=== PATIENT | female | born 1995 | race Caucasian/White ===

== ENCOUNTER 2024-08-21 15:06 | Emergency (ER) | payer OTHER, SELFPAY ==
[2024-08-21 15:14] VITALS: BP 124/69; PULSE 73; RESP 18; TEMP 36.9; O2SAT 100; BMI 21.6
--- NOTE | 2024-08-21 15:24 | DI.US.S_ITS ---
PROCEDURE: US OB LIMITED INDICATIONS: SPOTTING 1 OCCURRENCE TODAY. BILATERAL ADNEXA PAIN. OUTSIDE/PRIOR DATING DATA: Last menstrual period (LMP): 05/04/2024. LMP-based estimated date of delivery (BRODY): 02/08/2025. First dating scan (date and location): Not applicable. TECHNIQUE: Real-time scanning was performed of the fetus, with image documentation. COMPARISON: None. FINDINGS: A single live intrauterine gestation is present. Presentation: Vertex. Placenta: Placental position is anterior, without previa. Amniotic fluid index: 16.3 cm, normal range is 5-24 cm. Single deepest vertical pocket is 7.3 cm. heart rate: 157 beats per minute. Maternal cervical canal: Closed, 4 cm long. Normal lower limit is 2.5 cm. Clinically estimated gestational age: 15 weeks 4 days No subchorionic hemorrhage is seen. The right ovary is within normal limits. The left ovary is not well seen. IMPRESSION: A single live intrauterine is seen. A cause vaginal spotting is not seen. Dictated by: Raymundo Medina M.D. on 08/21/2024 at 16:31 Approved by: Raymundo Medina M.D. on 08/21/2024 at 16:32
[2024-08-21 15:27] VITALS: BP 126/70; PULSE 65; O2SAT 100
[2024-08-21 15:30] VITALS: PULSE 68; O2SAT 100
--- NOTE | 2024-08-21 15:40 | ED.PREGNANCY ---
HPI - General Chief complaint: Vaginal Bleeding Stated complaint: 15wk Preg, Bleeding, Pelvic Px Time Seen by Provider: 08/21/24 15:40 Source: patient Mode of arrival: Ambulatory Limitations: no limitations History of Present Illness HPI Narrative: Patient is a 29-year-old female no significant past medical history presents to the ED for evaluation of pelvic cramping and vaginal bleeding, is approximately 15 weeks , states that she does have a nuclear equipment research engineer who she called prior to this and was started come into the ED. Patient states that she has had 1 other vaginal delivery full term. States that she did notice 1 episode of bright red blood spotting earlier today after she finished yoga. States that it was accompanied with some mild pelvic cramping but is currently not having any symptoms at this time. States that the bleeding has since resolved. Not having any urinary symptoms vaginal discharge or any other symptoms at this time. Related Data Allergies Allergy/AdvReac Type Severity Reaction Status Date / Time No Known Drug Allergies Allergy Verified 08/21/24 15:14 Review of Systems Review of Systems Narrative: General: Denies fever, chills, weight loss HEENT: Denies headache, eye drainage, eye irritation, head trauma, sore throat, voice change Cardiovascular: Denies any chest pain, palpitations, shortness of breath, tachycardia Respiratory: Denies any shortness of breath, cough, wheeze, stridor GI/: Denies any abdominal pain, nausea, vomiting, diarrhea, bright red blood per rectum, melanotic stools, urinary frequency, urinary retention, dysuria, hematuria, positive vaginal bleeding, pelvic cramping MSK: Denies any joint pain, muscle pains, swelling Skin: Denies any rashes, lesions, discoloration Neuro: Denies any headache, lightheadedness, dizziness, fainting, weakness Psych: Denies SI/HI Exam Narrative Exam Narrative: General: Cooperative, comfortable, well-developed, not in acute distress HEENT: Normocephalic, atraumatic, PERRLA, normal sclera, eyelids normal, Neck: Active full range of motion, atraumatic Chest: Normal to inspection, negative crepitus, no overlying erythema ecchymosis Respiratory: Normal respiratory effort, not in acute respiratory distress, clear to auscultation bilaterally negative cough, wheeze, tachypnea, rhonchi, rales Cardiology: Regular rate rhythm negative gallop, murmur, rubs GI/: Normal to inspection, soft, nonrigid, no tenderness to palpation, exam deferred MSK: Full range of active range of motion of all 4 extremities, atraumatic Skin: No rashes lesions noted Neuro: Alert awake oriented x3, moves all 4 extremities spontaneously, cranial nerves intact, able to answer all questions appropriately follows commands appropriately Psych: Cooperative, negative suicidal or homicidal ideations Initial Vital Signs Initial Vital Signs: Vital Signs Temperature 98.5 F 08/21/24 15:14 Pulse Rate 73 08/21/24 15:14 Respiratory Rate 18 08/21/24 15:14 Blood Pressure 124/69 08/21/24 15:14 Pulse Oximetry 100 08/21/24 15:14 Oxygen Delivery Method Room Air 08/21/24 15:14 Course Orders Ordered: ED Orders 08/21/24 15:24 OB >= 14 weeks Fetus Stat Complete Blood Count AUTO DIFF Stat Comprehensive Metabolic Panel Stat HCG Quantitative /Beta subunit Stat Type and Screen Stat Vital Signs Vital signs: Vital Signs - 8 hr 08/21/24 15:14 Temperature 98.5 F Pulse Rate 73 Respiratory Rate 18 Blood Pressure 124/69 Pulse Oximetry 100 Oxygen Delivery Method Room Air MDM - OB/Uterine Contractions Differential Diagnosis Differential diagnosis: Likely other (Asymptomatic bacteriuria, threatened , normal ) Lab Data 08/21/24 15:56 08/21/24 15:56 Labs: Lab Results 08/21/24 08/21/24 Range/Units 15:56 16:22 WBC 10.0 (4.5-11.0) X10^3/uL RBC 3.88 L (4.0-5.2) X10^6/uL Hgb 12.9 (12.0-16.0) g/dL Hct 36.0 (36-46) % MCV 92.7 (80-100) fL MCH 33.2 (26-34) PG MCHC 35.9 (30-36) % RDW 12.6 (11.6-14.8) % Plt Count 170 (150-400) X10^3/uL Neut % (Auto) 78.0 H (50-75) % Lymph % (Auto) 16.1 L (25-40) % Becker % (Auto) 4.5 (3-14) % Eos % (Auto) 0.6 L (2-4) % Baso % (Auto) 0.8 (0-2) % Neut # (Auto) 7800 H (5986-6442) /uL Lymph # (Auto) 1600 (9096-7166) /uL Becker # (Auto) 400 (0-900) /uL Eos # (Auto) 100 (0-450) /uL Baso # (Auto) 100 (0-100) /uL Sodium 133 L (137-145) mmol/L Potassium 3.5 (3.4-5.1) mmol/L Chloride 104 (98-107) mmol/L Carbon Dioxide 21 L (22-32) mmol/L BUN 9 (7-17) mg/dL Creatinine 0.60 (0.52-1.04) mg/dL Estimated GFR > 60 (>60) mL/min BUN/Creatinine Ratio 15.0 (6-22) Glucose 90 (70-100) mg/dL Calcium 8.9 (8.4-10.2) mg/dL Total Bilirubin 0.6 (0.2-1.3) mg/dL AST 22 (14-36) IU/L ALT 12 (<35) IU/L Alkaline Phosphatase 47 (38-126) U/L Total Protein 6.8 (6.3-8.2) g/dL Albumin 3.9 (3.5-5.0) g/dL Globulin 2.9 (1.7-4.1) g/dL Albumin/Globulin Ratio 1.3 (1.0-2.8) HCG, Quant 95628 mIU/mL Urine RBC 0-1/hpf (0-5/HPF) Urine WBC 0-1/hpf (0-5/HPF) Ur Squamous Epith Cells 1-5 /hpf (0-5/HPF) Urine Bacteria Occasional (0-1) (None) Ur Culture Indicated? Cult not indicated Vol Urine Centrifuged 10ml (spun) Blood Type A Positive Antibody Screen Negative Urine Dip Bedside Urine Glucose Negative Bedside Urine Bilirubin - Negative Bedside Urine Ketone - Negative Urine Specific [place] 1.010 Bedside Urine Occult Blood ++ Bedside Urine pH 6.5 Bedside Urine Protein - Negative Bedside Urine Urobilinogen - Negative Bedside Urine Nitrite - Negative Bedside Urine Leukocytes - Negative Esterase Imaging Data [facility] - [employer]: Radiologist's Impression: [address] [address] Ultrasound Report Signed Patient: Meagan Haynes MR#: [id number] : 1995 Acct:[id number] Age/Sex: 29 / F Date of Service: 08/21/24 Loc: ED Accession Number: [id number] Procedure: US OB limited Ordering Provider: Abel Zambrano D.O. PROCEDURE: US OB LIMITED INDICATIONS: SPOTTING 1 OCCURRENCE TODAY. BILATERAL ADNEXA PAIN. OUTSIDE/PRIOR DATING DATA: Last menstrual period (LMP): 05/04/2024. LMP-based estimated date of delivery (BRODY): 02/08/2025. First dating scan (date and location): Not applicable. TECHNIQUE: Real-time scanning was performed of the fetus, with image documentation. COMPARISON: None. FINDINGS: A single live intrauterine gestation is present. Presentation: Vertex. Placenta: Placental position is anterior, without previa. Amniotic fluid index: 16.3 cm, normal range is 5-24 cm. Single deepest vertical pocket is 7.3 cm. heart rate: 157 beats per minute. Maternal cervical canal: Closed, 4 cm long. Normal lower limit is 2.5 cm. Clinically estimated gestational age: 15 weeks 4 days No subchorionic hemorrhage is seen. The right ovary is within normal limits. The left ovary is not well seen. IMPRESSION: A single live intrauterine is seen. A cause vaginal spotting is not seen. MDM Narrative Medical decision making narrative: Patient is a 29-year-old female presenting for pelvic pain and vaginal bleeding is approximately 15 weeks , does have an appointment with her nuclear equipment research engineer tomorrow, states that she had 1 episode of bright red blood spotting after she completed her yoga class today. States that she called her nuclear equipment research engineer and was instructed come into the ED if she was worried. Symptoms have resolved since presentation here in the emergency department. She has not complaining of any other symptoms at this time. Ultrasound did not show any acute findings. Urine without any signs of asymptomatic bacteriuria. Patient RhoGAM positive therefore will not require administration of RhoGAM. Patient was instructed on pelvic rest and to follow up with her nuclear equipment research engineer/OBGYN for her scheduled appointment. She verbalized understanding of this agrees to being discharged home with outpatient follow up Discharge Plan Departure Patient Disposition: Home Clinical Impression: Threatened Activity Restrictions/Additional Instructions: Please follow-up with your OBGYN and nuclear equipment research engineer for scheduled appointment Please read the discharge instructions sheet carefully and bring all papers to all doctor follow-up visits, as it may contain information that your doctor may want to see. Disease processes change and evolve, if your symptoms worsen or if you develop any new symptoms that are concerning to you please return for evaluation. Your evaluation today does not show any evidence of any life-threatening/serious illnesses requiring admission to the hospital or surgery. Please follow-up with your doctor for re-evaluation in approximately 1 day. Seek immediate medical attention for any worrisome symptoms. Stand Alone Forms: Patient Portal/API
[2024-08-21 16:00] VITALS: PULSE 70; O2SAT 100
[2024-08-21 16:10] LABS: Add Manual Diff / Slide Review NO; Basophils Absolute Auto 100 /uL (0-100); Basophils Percent Auto 0.8 % (0-2); Eosinophils Absolute Auto 100 /uL (0-450); Eosinophils Percent Auto 0.6 % (2-4); Hemoglobin 12.9 g/dL (12.0-16.0); Lymphocytes Absolute Auto 1600 /uL (1100-4500); Lymphocytes Percent Auto 16.1 % (25-40); Mean Corpuscular HGB Conc 35.9 % (30-36); Mean Corpuscular Hemoglobin 33.2 PG (26-34); Mean Corpuscular Volume 92.7 fL (80-100); Monocytes Absolute Auto 400 /uL (0-900); Monocytes Percent Auto 4.5 % (3-14); Neutrophils Absolute Auto 7800 /uL (1500-7000); Platelet Count 170 X10^3/uL (150-400); Red Blood Cell Count 3.88 X10^6/uL (4.0-5.2); Red Cell Distribution Width 12.6 % (11.6-14.8)
[2024-08-21 16:23] LABS: Alanine Aminotransferase 12 IU/L (<35); Albumin 3.9 g/dL (3.5-5.0); Albumin Globulin Ratio 1.3 (1.0-2.8); Alkaline Phosphatase 47 U/L (38-126); Aspartate Aminotransferase 22 IU/L (14-36); Bilirubin Total 0.6 mg/dL (0.2-1.3); Blood Urea Nitrogen 9 mg/dL (7-17); Calcium 8.9 mg/dL (8.4-10.2); Carbon Dioxide 21 mmol/L (22-32); Chloride 104 mmol/L (98-107); Estimated Glomerular Filt Rate > 60 mL/min (>60); Globulin 2.9 g/dL (1.7-4.1); Glucose 90 mg/dL (70-100); HEMOLYSIS < 15 (0-50); Potassium 3.5 mmol/L (3.4-5.1); Sodium 133 mmol/L (137-145); Total Protein 6.8 g/dL (6.3-8.2)
[2024-08-21 16:45] LABS: Bacteria Urine Occasional (0-1); Culture Indicated Urine Cult Not Indicated; RBC Urine 0-1/HPF (0-5/HPF); Squamous Epithelial Cell Urine 1-5 /HPF (0-5/HPF); Urine Volume 10mL (spun); WBC Urine 0-1/HPF (0-5/HPF)
[2024-08-21 17:09] LABS: HCG Quantitative /Beta subunit 29399 mIU/mL
[2024-08-21 17:52] VITALS: BP 112/71; PULSE 65; RESP 14; O2SAT 100
== END 2024-08-21 17:57 | disposition home or self-care (01) ==
PROVIDERS: Emergency Provider Student in an Organized Health Care Education/Training Program
DX: O20.0 Threatened abortion (principal); R10.2 Pelvic and perineal pain; Z3A.15 15 weeks gestation of pregnancy
CPT/HCPCS: 36415; 76815; 80053; 81003; 81015; 84702; 85025; 86850; 86900; 86901; 99284

== ENCOUNTER → 2024-09-19 08:52 | Outpatient (CLI) | payer OTHER, SELFPAY ==
--- NOTE | 2024-09-19 08:54 | DI.US.S_ITS ---
PROCEDURE: US OB >= 14 WEEKS FETUS INDICATIONS: COMPLETE ANATOMY SCAN OUTSIDE/PRIOR DATING DATA: Last menstrual period (LMP): 05/04/2024. LMP-based estimated date of delivery (BRODY): 02/08/2025. First dating scan (date and location): Not known. Estimated date of delivery (BRODY) from first dating scan: Not known. The calculations are made using the clinical BRODY of 02/08/2025. TECHNIQUE: Real-time scanning was performed of the fetus, with image documentation and biometric measurements. COMPARISON: [facility], OB LIMITED, 08/21/2024, 16:09. FINDINGS: General: A single living intrauterine gestation is present. Presentation: Breech. Placenta: Placental position is anterior , without previa. Amniotic fluid index: 13.4 cm, normal range is 5-24 cm. Single deepest vertical pocket is 4.2 cm. heart rate: 150 beats per minute. Maternal cervical canal: 3.2 cm long. Normal lower limit is 2.5 cm. biometrics: Biparietal diameter: 4.6 cm 19 weeks 6 days Head circumference: 17.1 cm 19 weeks 5 days Abdominal circumference: 15.1 cm 20 weeks 2 days Femur length: 3.1 cm 19 weeks 4 days Clinically estimated gestational age: 19 weeks 5 days Composite gestational age from present scan: 19 weeks 6 days Estimated weight and percentile: 320 g 57th percentile Anatomic survey: Neuro: Ventricles are non-dilated at less than 10 mm. Cisterna magna is normal at 3-11 mm. Cerebellum is normal in size and morphology. Nuchal skin fold: Normal at less than 6 mm between 14-21 weeks gestational age. Face: Nose and lips, facial profile are normal. Spine: No evidence for spina bifida. Heart: 4-chambered heart is present, with normal ventricular outflow tracts. Diaphragm: Diaphragm is intact. Stomach: Left-sided stomach is present. Kidneys: No hydronephrosis. Normal is less than 5 mm in 2nd trimester, less than 7 mm in 3rd trimester. Cord: 3-vessel cord has orthotopic insertion. Bladder: Normal in size. Extremities: All 4 extremities identified. IMPRESSION: Single live intrauterine with gestational age today of 19 weeks 6 days. Anatomy is within normal limits. We strive to produce accurate, complete, and clear reports of imaging services. To assist us in improving patient care, this report was composed using standard report templates and voice recognition software. Therefore, it may contain abnormal punctuation, insertions and/or omissions. Occasional wrong-word or sound-alike substitutions may occur. Though we review the report and make efforts to correct it, we do recommend that the report be read carefully in proper context to recognize any text inaccuracies. Dictated by: Anastasia Branch M.D. on 09/19/2024 at 20:28 Approved by: Anastasia Branch M.D. on 09/19/2024 at 20:30
== END ==
PROVIDERS: PCP Naturopath; Referring Provider Nurse Practitioner Obstetrics & Gynecology; Visit Provider Nurse Practitioner Obstetrics & Gynecology
DX: Z34.92 Encounter for supervision of normal pregnancy, unspecified, second trimester (principal); Z3A.19 19 weeks gestation of pregnancy
CPT/HCPCS: 76811